=== PATIENT | male | born 1980 | race Caucasian/White ===

== ENCOUNTER 2017-05-14 03:34 | Emergency (ER) | payer SELFPAY ==
--- NOTE | 2017-05-14 03:38 | C.PDOC ---
Time Seen by Provider: 05/14/17 03:38 Chief Complaint (Nursing): Abnormal Skin Integrity Past Medical History Family History: States: Unknown Family Hx Disposition Counseled Patient/Family Regarding: Studies Performed, Diagnosis - Disposition Disposition Time: 03:38 Forms: [employer] (Romanian)
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
[2017-05-14 03:43] VITALS: RESP 14
[2017-05-14] MEDS ORDERED: Lidocaine 2% w Epi 1:100,000 Inj IJ ONE (06:00)
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
[2017-05-14 07:09] VITALS: BP 120/80; PULSE 80; TEMP 98; O2SAT 98
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
== END 2017-05-14 07:08 | disposition home or self-care (01) ==
LOC: C.ER 03:34
DX: S91.312A Laceration without foreign body, left foot, initial encounter (principal); S96.922A Laceration of unspecified muscle and tendon at ankle and foot level, left foot, initial encounter; W26.0XXA Contact with knife, initial encounter; Z23 Encounter for immunization